=== PATIENT | male | born 1970 | race African-American/Black ===

== ENCOUNTER 2018-04-08 11:04 | Emergency (ER) | payer MEDICAID ==
--- NOTE | 2018-04-08 11:51 | EDM.PDOC ---
ED HPI GENERAL MEDICAL PROBLEM - General Chief Complaint: Respiratory Problem Stated Complaint: TROUBLE BREATHING Time Seen by Provider: 04/08/18 11:24 Source of Information: Reports: Patient, Family History Limitations: Reports: No Limitations - History of Present Illness INITIAL COMMENTS - FREE TEXT/NARRATIVE: Presents reporting cough chills and chest pain with cough. The patient states that he had the same set of symptoms once previous, he had pneumonia and had to be hospitalized for 2 days. He wanted to be proactive and be seen before it got to that point if that is indeed what is troubling him. He has a history of mechanical MVR mechanical AVR, A. fib/flutter anticoagulated, ejection fraction 30-35% in 11/2017. He otherwise feels well however and works full-time as a fabrication mig welder. Right Upper Chest Pain Score (Numeric/FACES): 6 - Related Data Allergies Allergy/AdvReac Type Severity Reaction Status Date / Time Sulfa (Sulfonamide Allergy Rash Verified 04/08/18 11:25 Antibiotics) Home Meds: Home Meds Warfarin [Coumadin] 4 mg PO ASDIRECTED 01/28/18 [History] Doxycycline [Vibramycin] 100 mg PO DAILY #10 tab 04/08/18 [Rx] Enalapril Maleate [Vasotec] 40 mg PO DAILY 04/08/18 [History] Enalapril [Vasotec] 10 mg PO DAILY 04/08/18 [History] levETIRAcetam [Keppra] 500 mg PO DAILY 04/08/18 [History] Past Medical History HEENT History: Reports: None Cardiovascular History: Reports: Afib Respiratory History: Reports: Other (See Below) Other Respiratory History: pneumonia Other Gastrointestinal History: Crohns disease Genitourinary History: Reports: None Musculoskeletal History: Reports: None Neurological History: Reports: Seizure Psychiatric History: Reports: None Endocrine/Metabolic History: Reports: None Hematologic History: Reports: None Immunologic History: Reports: None Oncologic (Cancer) History: Reports: None Dermatologic History: Reports: None - Infectious Disease History Infectious Disease History: Reports: Chicken Pox - Past Surgical History Head Surgeries/Procedures: Reports: None Cardiovascular Surgical History: Reports: Valve Replacement Social & Family History - Family History Family Medical History: Noncontributory - Tobacco Use Smoking Status *Q: Never Smoker - Caffeine Use Caffeine Use: Reports: Coffee - Recreational Drug Use Recreational Drug Use: No ED ROS GENERAL - Review of Systems Review Of Systems: ROS reveals no pertinent complaints other than HPI. ED EXAM, GENERAL - Physical Exam Exam: See Below Exam Limited By: No Limitations General Appearance: Alert, No Apparent Distress Ears: Normal External Exam, Normal TMs Nose: Normal Inspection Throat/Mouth: Normal Inspection, Normal Oropharynx Head: Atraumatic, Normocephalic Neck: Normal Inspection Respiratory/Chest: No Respiratory Distress, Lungs Clear, No Accessory Muscle Use Cardiovascular: Normal Peripheral Pulses, No Edema, Irregularly Irregular Neurological: Alert, Oriented, Normal Cognition Psychiatric: Normal Affect, Normal Mood Skin Exam: Warm, Dry, Intact, Normal Color, No Rash Lymphatic: No Adenopathy Course - Vital Signs Last Recorded V/S: Last Vital Signs Temp 36.8 C 04/08/18 11:22 Pulse 62 04/08/18 12:17 Resp 14 04/08/18 12:17 BP 136/85 04/08/18 12:17 Pulse Ox 98 04/08/18 12:17 - Orders/Labs/Meds Labs: Laboratory Tests 04/08/18 04/08/18 04/08/18 Range/Units 11:57 11:57 11:57 WBC 9.24 (4.0-11.0) K/uL RBC 4.64 (4.50-5.90) M/uL Hgb 13.0 (13.0-17.0) g/dL Hct 38.6 (38.0-50.0) % MCV 83.2 (80.0-98.0) fL MCH 28.0 (27.0-32.0) pg MCHC 33.7 (31.0-37.0) g/dL RDW Std Deviation 43.8 (28.0-62.0) fl RDW Coeff of Sherwin 15 (11.0-15.0) % Plt Count 169 (150-400) K/uL MPV 10.90 (7.40-12.00) fL Add Manual Diff YES Neutrophils % (Manual) 66 (48.0-80.0) % Band Neutrophils % 3 % Lymphocytes % (Manual) 25 (16.0-40.0) % Monocytes % (Manual) 5 (0.0-15.0) % Eosinophils % (Manual) 1 (0.0-7.0) % Nucleated RBC % 0.0 /100WBC Absolute Seg Neuts 6.1 H (1.4-5.7) Band Neutrophils # 0.3 Lymphocytes # (Manual) 2.3 (0.6-2.4) Monocytes # (Manual) 0.5 (0.0-0.8) Eosinophils # (Manual) 0.1 (0.0-0.7) Nucleated RBCs # 0 K/uL Sodium 139 (136-148) mmol/L Potassium 4.0 (3.5-5.1) mmol/L Chloride 105 (98-107) mmol/L Carbon Dioxide 27.3 (21.0-32.0) mmol/L BUN 11 (7.0-18.0) mg/dL Creatinine 0.8 (0.8-1.3) mg/dL Est Cr Clr Drug Dosing 100.80 mL/min Estimated GFR (MDRD) > 60.0 ml/min Glucose 71 L (74-106) mg/dL Calcium 9.0 (8.5-10.1) mg/dL Troponin I < 0.050 (0.000-0.056) ng/mL Meds: Medications Discontinued Medications Generic Name Dose Route Start Last Admin Trade Name Freq PRN Reason Stop Dose Admin Ceftriaxone Sodium 1 gm 04/08/18 13:05 Rocephin IM 04/08/18 13:06 ONETIME ONE Lidocaine HCl Confirm 04/08/18 13:12 Xylocaine-Mpf 1% Administered 04/08/18 13:13 Dose 5 mls @ as directed .ROUTE .STK-MED ONE Lidocaine HCl 2.1 ml 04/08/18 13:09 Xylocaine 1% INJECT 04/08/18 13:10 ONETIME ONE Departure - Departure Time of Disposition: 13:23 Disposition: Home, Self-Care 01 Condition: Good Clinical Impression: Pneumonia Qualifiers: Pneumonia type: due to unspecified organism Laterality: left Lung location: lower lobe of lung Qualified Code(s): J18.1 - Lobar pneumonia, unspecified organism - Discharge Information Referrals: PCP,Not In Area [Primary Care Provider] - [facility] [Outside] [facility] [Outside] Forms: ED Department Discharge Additional Instructions: 1. Take your antibiotic once daily for the next 10 days 2. This medication can affect you Coumadin please home check your INR a couple of times during the next 10 days to be sure it stays between 2 and 3. 3. Follow-up in primary care. Return if symptoms worsen, feverish, do not improve as expected
--- NOTE | 2018-04-08 12:24 | CR ---
EXAMINATION: Two-view chest (PA and Lateral views). HISTORY: Cough. FINDINGS: The trachea is midline. The heart is borderline in size. The cardiomediastinal silhouette is within normal limits. Mild left basilar atelectasis or infiltrate. No pleural effusion or pneumothorax. Osseous structures appear unremarkable. Median sternotomy wires are noted. IMPRESSION: Mild left basilar atelectasis and/or infiltrate.
[2018-04-08 12:26] LABS: CHLORIDE,CL 105 mmol/L (98-107); SODIUM,NA 139 mmol/L (136-148)
[2018-04-08] MEDS ORDERED: cefTRIAXone 1 GM Vial IM ONE (13:05)
[2018-04-08] MEDS ORDERED: Lidocaine 1% 20 ML MDV INJECT ONE (13:09)
== END 2018-04-08 13:46 | disposition home or self-care (01) ==
LOC: MW.ED 11:04
DX: J18.1 Lobar pneumonia, unspecified organism (principal); Z88.2 Allergy status to sulfonamides; Z79.01 Long term (current) use of anticoagulants; Z79.899 Other long term (current) drug therapy
CPT/HCPCS: 36415; 71046; 80048; 84484; 85025; 87804; 93005; 96372; 99284; J0696

== ENCOUNTER 2018-08-22 17:55 | Emergency (ER) | payer MEDICAID ==
[2018-08-22] MEDS ORDERED: Sodium Chloride 0.9% 1,000 ML IV ONE (18:06)
--- NOTE | 2018-08-22 18:13 | EDM.PDOC ---
ED HPI GENERAL MEDICAL PROBLEM - General Chief Complaint: Chest Pain Stated Complaint: CHEST PAINS/LIGHT HEADEDNESS Time Seen by Provider: 08/22/18 17:57 Source of Information: Reports: Patient History Limitations: Reports: No Limitations - History of Present Illness INITIAL COMMENTS - FREE TEXT/NARRATIVE: HISTORY AND PHYSICAL: History of present illness: Patient is a 47-year-old male presents to the ED today with concern of neck pain /spasm over the past week along with vague chest pressure. Patient has an extensive cardiac history of both an aortic and mitral valve repair due to rheumatic heart disease and he was a child. Patient is on warfarin and checks his INR regularly. He states that his last INR was just a little bit less than 3 on Saturday. Patient states he also has Crohn's and atrial fibrillation. Patient states he had his valves repaired in 1991 and follows with her echo vascular technologist Dr. Mcguire at [facility] and has not had issues with his heart since. Patient states the neck pain feels like a spasm and is worse on the left than the right and has been causing him to have a headache. Patient has not taken anything for his symptoms. Patient denies fever, chills, or shortness of breath or cough. Denies change in vision, syncope, or near syncope. Denies nausea, vomiting, abdominal pain, diarrhea, constipation, or dysuria. Has not noted any blood in urine or stool. Patient has been eating and drinking appropriately. Review of systems: As per history of present illness and below otherwise all systems reviewed and negative. Past medical history: As per history of present illness and as reviewed below otherwise noncontributory. Surgical history: As per history of present illness and as reviewed below otherwise noncontributory. Social history: See social history for further information Family history: As per history of present illness and as reviewed below otherwise noncontributory. Physical exam: General: Patient is alert, oriented, and in no acute distress. Patient sitting comfortably on exam table. HEENT: Atraumatic, normocephalic, pupils equal and reactive bilaterally, negative for conjunctival pallor or scleral icterus, mucous membranes moist, TMs normal bilaterally, throat clear, neck supple, nontender, trachea midline. No drooling or trismus noted. No meningeal signs. No hot potato voice noted. Lungs: Clear to auscultation, breath sounds equal bilaterally, chest nontender. Heart: S1S2, irregularly irregular rate and rhythm without overt murmur and clicking of mechanical valves noted. Scarring consistent with surgical history. Abdomen: Soft, nondistended, nontender. Negative for masses or hepatosplenomegaly. Negative for costovertebral tenderness. Pelvis: Stable nontender. Genitourinary: Deferred. Rectal: Deferred. Skin: Intact, warm, dry. No lesions or rashes noted. Extremities/musculoskeletal: Atraumatic, negative for cords or calf pain. Neurovascular unremarkable. Patient has full range of motion of the complete spine. Negative pain to palpation of the complete spinous process. No obvious step-offs, deformities, or crepitus on palpation of the complete spine. Patient does have pain at the insertion site of the trapezius into the base of the skull. Neuro: Awake, alert, oriented. Cranial nerves II through XII unremarkable. Cerebellum unremarkable. Motor and sensory unremarkable throughout. Exam nonfocal. Notes: Eunice San verbally involved in patient care. EKG from prior also shows a LBBB and atrial fibrillation; no new EKG changes. Offered admission for observation but patient declines at this time stating he does not live far from here and will return if symptoms change or worsen. Discussed the supratherapeutic INR and patient states he has a chart at home to adjust his dose accordingly. Voices understanding and is agreeable to plan of care. Denies any further questions or concerns at this time. Diagnostics: CBC, CMP, UA, troponin, EKG, chest x-ray, PT/INR, cervical spine XR Therapeutics: NS Impression: Neck pain, unspecified Chest pain, unspecified Supratherapeutic INR H/O aortic and mitral valve replacement Plan: 1. Alternate ibuprofen and Tylenol as directed for pain and discomfort. 2. Follow-up with your primary care provider and your echo vascular technologist as discussed. Adjust your warfarin as discussed. 3. Return to the ED as needed and as discussed. Definitive disposition and diagnosis as appropriate pending reevaluation and review of above. Chest Pain Score (Numeric/FACES): 6 - Related Data Allergies Allergy/AdvReac Type Severity Reaction Status Date / Time Sulfa (Sulfonamide Allergy Rash Verified 08/22/18 17:58 Antibiotics) Home Meds: Home Meds Warfarin [Coumadin] 4 mg PO ASDIRECTED 01/28/18 [History] Doxycycline [Vibramycin] 100 mg PO DAILY #10 tab 04/08/18 [Rx] Enalapril Maleate [Vasotec] 40 mg PO DAILY 04/08/18 [History] Enalapril [Vasotec] 10 mg PO DAILY 04/08/18 [History] levETIRAcetam [Keppra] 500 mg PO DAILY 04/08/18 [History] Past Medical History HEENT History: Reports: None Cardiovascular History: Reports: Afib Respiratory History: Reports: Other (See Below) Other Respiratory History: pneumonia Other Gastrointestinal History: Crohns disease Genitourinary History: Reports: None Musculoskeletal History: Reports: None Neurological History: Reports: Seizure Psychiatric History: Reports: None Endocrine/Metabolic History: Reports: None Hematologic History: Reports: None Immunologic History: Reports: None Oncologic (Cancer) History: Reports: None Dermatologic History: Reports: None - Infectious Disease History Infectious Disease History: Reports: Chicken Pox, Rheumatic Fever - Past Surgical History Head Surgeries/Procedures: Reports: None Cardiovascular Surgical History: Reports: Valve Replacement Social & Family History - Family History Family Medical History: Noncontributory - Tobacco Use Smoking Status *Q: Never Smoker Second Hand Smoke Exposure: No - Caffeine Use Caffeine Use: Reports: Coffee - Recreational Drug Use Recreational Drug Use: No ED ROS GENERAL - Review of Systems Review Of Systems: ROS reveals no pertinent complaints other than HPI. ED EXAM, GENERAL - Physical Exam Exam: See Below (See dictation) Course - Vital Signs Last Recorded V/S: Last Vital Signs Temp 35.8 C 08/22/18 17:59 Pulse 74 08/22/18 20:29 Resp 18 08/22/18 20:29 BP 132/60 08/22/18 20:29 Pulse Ox 98 08/22/18 20:29 - Orders/Labs/Meds Orders: Active Orders 24 hr Category Date Time Status EKG Documentation Completion [RC] STAT Care 08/22/18 17:58 Active Labs: Laboratory Tests 08/22/18 08/22/18 08/22/18 Range/Units 18:06 18:06 18:06 WBC 11.90 H (4.0-11.0) K/uL RBC 4.76 (4.50-5.90) M/uL Hgb 13.7 (13.0-17.0) g/dL Hct 39.7 (38.0-50.0) % MCV 83.4 (80.0-98.0) fL MCH 28.8 (27.0-32.0) pg MCHC 34.5 (31.0-37.0) g/dL RDW Std Deviation 46.4 (28.0-62.0) fl RDW Coeff of Sherwin 15 (11.0-15.0) % Plt Count 164 (150-400) K/uL MPV 11.00 (7.40-12.00) fL Neut % (Auto) 73.3 (48.0-80.0) % Lymph % (Auto) 14.5 L (16.0-40.0) % [place] % (Auto) 11.8 (0.0-15.0) % Eos % (Auto) 0.2 (0.0-7.0) % Baso % (Auto) 0.2 (0.0-1.5) % Neut # (Auto) 8.7 H (1.4-5.7) K/uL Lymph # (Auto) 1.7 (0.6-2.4) K/uL [place] # (Auto) 1.4 H (0.0-0.8) K/uL Eos # (Auto) 0.0 (0.0-0.7) K/uL Baso # (Auto) 0.0 (0.0-0.1) K/uL Nucleated RBC % 0.0 /100WBC Nucleated RBCs # 0 K/uL INR 4.11 Sodium 132 L (136-148) mmol/L Potassium 4.0 (3.5-5.1) mmol/L Chloride 102 (98-107) mmol/L Carbon Dioxide 21.8 (21.0-32.0) mmol/L BUN 18 (7.0-18.0) mg/dL Creatinine 0.8 (0.8-1.3) mg/dL Est Cr Clr Drug Dosing 100.80 mL/min Estimated GFR (MDRD) > 60.0 ml/min Glucose 104 (74-106) mg/dL Calcium 8.6 (8.5-10.1) mg/dL Total Bilirubin 1.5 H (0.2-1.0) mg/dL AST 35 (15-37) IU/L ALT 40 (14-63) IU/L Alkaline Phosphatase 82 (46-116) U/L Troponin I < 0.050 (0.000-0.056) ng/mL Total Protein 7.1 (6.4-8.2) g/dL Albumin 3.6 (3.4-5.0) g/dL Globulin 3.5 (2.6-4.0) g/dL Albumin/Globulin Ratio 1.0 (0.9-1.6) Urine Color Urine Appearance Urine pH (5.0-8.0) Ur Specific [place] (1.001-1.035) Urine Protein (NEGATIVE) mg/dL Urine Glucose (UA) (NEGATIVE) mg/dL Urine Ketones (NEGATIVE) mg/dL Urine Occult Blood (NEGATIVE) Urine Nitrite (NEGATIVE) Urine Bilirubin (NEGATIVE) Urine Urobilinogen (<2.0) EU/dL Ur Leukocyte Esterase (NEGATIVE) Urine RBC (0-2/HPF) Urine WBC (0-5/HPF) Ur Epithelial Cells (NONE-FEW) Urine Bacteria (NEGATIVE) 08/22/18 Range/Units 19:52 WBC (4.0-11.0) K/uL RBC (4.50-5.90) M/uL Hgb (13.0-17.0) g/dL Hct (38.0-50.0) % MCV (80.0-98.0) fL MCH (27.0-32.0) pg MCHC (31.0-37.0) g/dL RDW Std Deviation (28.0-62.0) fl RDW Coeff of Sherwin (11.0-15.0) % Plt Count (150-400) K/uL MPV (7.40-12.00) fL Neut % (Auto) (48.0-80.0) % Lymph % (Auto) (16.0-40.0) % [place] % (Auto) (0.0-15.0) % Eos % (Auto) (0.0-7.0) % Baso % (Auto) (0.0-1.5) % Neut # (Auto) (1.4-5.7) K/uL Lymph # (Auto) (0.6-2.4) K/uL [place] # (Auto) (0.0-0.8) K/uL Eos # (Auto) (0.0-0.7) K/uL Baso # (Auto) (0.0-0.1) K/uL Nucleated RBC % /100WBC Nucleated RBCs # K/uL INR Sodium (136-148) mmol/L Potassium (3.5-5.1) mmol/L Chloride (98-107) mmol/L Carbon Dioxide (21.0-32.0) mmol/L BUN (7.0-18.0) mg/dL Creatinine (0.8-1.3) mg/dL Est Cr Clr Drug Dosing mL/min Estimated GFR (MDRD) ml/min Glucose (74-106) mg/dL Calcium (8.5-10.1) mg/dL Total Bilirubin (0.2-1.0) mg/dL AST (15-37) IU/L ALT (14-63) IU/L Alkaline Phosphatase (46-116) U/L Troponin I (0.000-0.056) ng/mL Total Protein (6.4-8.2) g/dL Albumin (3.4-5.0) g/dL Globulin (2.6-4.0) g/dL Albumin/Globulin Ratio (0.9-1.6) Urine Color YELLOW Urine Appearance CLEAR Urine pH 6.0 (5.0-8.0) Ur Specific [place] 1.010 (1.001-1.035) Urine Protein NEGATIVE (NEGATIVE) mg/dL Urine Glucose (UA) NEGATIVE (NEGATIVE) mg/dL Urine Ketones NEGATIVE (NEGATIVE) mg/dL Urine Occult Blood TRACE-LYSED H (NEGATIVE) Urine Nitrite NEGATIVE (NEGATIVE) Urine Bilirubin NEGATIVE (NEGATIVE) Urine Urobilinogen 0.2 (<2.0) EU/dL Ur Leukocyte Esterase NEGATIVE (NEGATIVE) Urine RBC 0-2 (0-2/HPF) Urine WBC 0-1 (0-5/HPF) Ur Epithelial Cells RARE (NONE-FEW) Urine Bacteria RARE (NEGATIVE) Meds: Medications Discontinued Medications Generic Name Dose Route Start Last Admin Trade Name Freq PRN Reason Stop Dose Admin Sodium Chloride 1,000 mls @ 999 mls/hr 08/22/18 18:06 08/22/18 18:26 Normal Saline IV 08/22/18 19:06 999 mls/hr BOLUS ONE Administration Departure - Departure Time of Disposition: 10:11 Disposition: Home, Self-Care 01 Clinical Impression: Neck pain, Supratherapeutic INR, History of mitral valve replacement, History of aortic valve replacement Chest pain Qualifiers: Chest pain type: unspecified Qualified Code(s): R07.9 - Chest pain, unspecified - Discharge Information Instructions: What You Need to Know About Warfarin, Nonspecific Chest Pain, [id number] Referrals: PCP,None [Primary Care Provider] - Forms: ED Department Discharge Additional Instructions: The following information is given to patients seen in the emergency department who are being discharged to home. This information is to outline your options for follow-up care. We provide all patients seen in our emergency department with a follow-up referral. The need for follow-up, as well as the timing and circumstances, are variable depending upon the specifics of your emergency department visit. If you don't have a primary care physician on staff, we will provide you with a referral. We always advise you to contact your personal physician following an emergency department visit to inform them of the circumstance of the visit and for follow-up with them and/or the need for any referrals to a consulting specialist. The emergency department will also refer you to a specialist when appropriate. This referral assures that you have the opportunity for follow-up care with a specialist. All of these measure are taken in an effort to provide you with optimal care, which includes your follow-up. Under all circumstances we always encourage you to contact your private physician who remains a resource for coordinating your care. When calling for follow-up care, please make the office aware that this follow-up is from your recent emergency room visit. If for any reason you are refused follow-up, please contact the [facility] Emergency Department at and asked to speak to the emergency department charge nurse. [facility] [address] [place] [id number] [facility] [address] [place] [id number] 1. Alternate ibuprofen and Tylenol as directed for pain and discomfort. 2. Follow-up with your primary care provider and your echo vascular technologist as discussed. Adjust your warfarin as discussed. 3. Return to the ED as needed and as discussed. - My Orders Last 24 Hours: My Active Orders 08/22/18 17:58 EKG Documentation Completion [RC] STAT - Assessment/Plan Last 24 Hours: My Active Orders 08/22/18 17:58 EKG Documentation Completion [RC] STAT
[2018-08-22 18:42] LABS: CHLORIDE,CL 102 mmol/L (98-107); SODIUM,NA 132 mmol/L (136-148)
--- NOTE | 2018-08-22 19:30 | CR ---
INDICATION: Chest pain COMPARISON: 04/08/2018 FINDINGS: An erect single view of the chest was obtained at 1839 hours. The lungs remain clear. No focal or diffuse infiltrates are present. The heart remains mildly enlarged. Again seen are sternal wires from median sternotomy. The mediastinum is otherwise normal in appearance. The osseous structures are normal in appearance for the patient`s age. IMPRESSION: Stable mild cardiomegaly. No active disease seen in the chest. Dictated by Jose Bishop MD @ Aug 22 2018 7:28PM Signed by Dr. Jose Bishop @ Aug 22 2018 7:29PM
--- NOTE | 2018-08-22 19:35 | CR ---
INDICATION : Neck pain. TECHNIQUE : Cervical spine. Total of 3 views. IMPRESSION : Normal appearance of vertebral bodies. Minimal disc narrowing at C6-7. Prevertebral soft tissues appear normal. Straightening of the cervical lordosis but no listhesis. No significant osseous fracture or suspicious lesion. Dictated by Femi Feng MD @ Aug 22 2018 7:31PM Signed by Dr. Femi Feng @ Aug 22 2018 7:33PM
== END 2018-08-22 20:29 | disposition home or self-care (01) ==
LOC: MW.ED 17:55
DX: R07.89 Other chest pain (principal); M54.2 Cervicalgia; R79.1 Abnormal coagulation profile; I48.91 Unspecified atrial fibrillation; K50.90 Crohn's disease, unspecified, without complications; Z95.4 Presence of other heart-valve replacement; Z79.899 Other long term (current) drug therapy; Z88.2 Allergy status to sulfonamides
CPT/HCPCS: 36415; 71045; 72040; 80053; 81001; 84484; 85025; 85610; 93005; 96360; 99284; J7040

== ENCOUNTER 2018-09-27 13:22 | Emergency (ER) | payer MEDICAID ==
[2018-09-27] MEDS ORDERED: Sodium Chloride 0.9% 1,000 ML IV ONE (13:29)
[2018-09-27] MEDS ORDERED: LORazepam 2 MG/ML SDV IVPUSH ONE (13:30)
[2018-09-27] MEDS ORDERED: cefTRIAXone 1 GM in Premix Bag 1 BAG IV ONE (13:30)
--- NOTE | 2018-09-27 13:32 | EDM.PDOC ---
ED HPI GENERAL MEDICAL PROBLEM - General Chief Complaint: Neurological Problem Stated Complaint: SEIZURES Time Seen by Provider: 09/27/18 13:31 Source of Information: Reports: Patient - History of Present Illness INITIAL COMMENTS - FREE TEXT/NARRATIVE: HISTORY AND PHYSICAL: History of present illness: [Pt presents with history of seizure disorder via EMS Is been some time since he has had any seizure symptoms however he did have a seizure just prior to arrival witnessed by his , he states that he is on Keppra however he decreased his dose to once daily instead of twice daily approximately one week prior No fever nausea vomiting chills sweats] Review of systems: As per history of present illness and below otherwise all systems reviewed and negative. Past medical history: As per history of present illness and as reviewed below otherwise noncontributory. Surgical history: As per history of present illness and as reviewed below otherwise noncontributory. Social history: No reported history of drug or alcohol abuse. Family history: As per history of present illness and as reviewed below otherwise noncontributory. Physical exam: HEENT: Atraumatic, normocephalic, pupils reactive, negative for conjunctival pallor or scleral icterus, mucous membranes moist, throat clear, neck supple, nontender, trachea midline. Lungs: Clear to auscultation, breath sounds equal bilaterally, chest nontender. Heart: S1S2, regular, negative for clicks, rubs, or JVD. Abdomen: Soft, nondistended, nontender. Negative for masses or hepatosplenomegaly. Negative for costovertebral tenderness. Pelvis: Stable nontender. Genitourinary: Deferred. Rectal: Deferred. Extremities: Atraumatic, negative for cords or calf pain. Neurovascular unremarkable. Neuro: Awake, alert, oriented. Cranial nerves II through XII unremarkable. Cerebellum unremarkable. Motor and sensory unremarkable throughout. Exam nonfocal. Diagnostics: [CBC CMP UA troponin INR Level EKG Chest [address] no contrast ] Therapeutics: Normal saline Ativan 1 mg IV ]Vasotec 1.25 IV Clonidine 0.1 by mouth Augmentin Impression: [ seizure disorder ] Hypertension Headache Tooth bite distal tongue Chronic history baseline Definitive disposition and diagnosis as appropriate pending reevaluation and review of above. tongue Pain Score (Numeric/FACES): 7 - Related Data Allergies Allergy/AdvReac Type Severity Reaction Status Date / Time Sulfa (Sulfonamide Allergy Rash Verified 08/22/18 17:58 Antibiotics) Home Meds: Home Meds Warfarin [Coumadin] 4 mg PO ASDIRECTED 01/28/18 [History] Doxycycline [Vibramycin] 100 mg PO DAILY #10 tab 04/08/18 [Rx] Enalapril Maleate [Vasotec] 40 mg PO DAILY 04/08/18 [History] Enalapril [Vasotec] 10 mg PO DAILY 04/08/18 [History] levETIRAcetam [Keppra] 500 mg PO BID 04/08/18 [History] Carvedilol 6.25 mg PO BID 09/27/18 [History] Lisinopril 10 mg PO DAILY 09/27/18 [History] atorvaSTATin Calcium [Atorvastatin Calcium] 40 mg PO DAILY 09/27/18 [History] Past Medical History HEENT History: Reports: None Cardiovascular History: Reports: Afib Respiratory History: Reports: Other (See Below) Other Respiratory History: pneumonia Other Gastrointestinal History: Crohns disease Genitourinary History: Reports: None Musculoskeletal History: Reports: None Neurological History: Reports: Seizure Psychiatric History: Reports: None Endocrine/Metabolic History: Reports: None Hematologic History: Reports: None Immunologic History: Reports: None Oncologic (Cancer) History: Reports: None Dermatologic History: Reports: None - Infectious Disease History Infectious Disease History: Reports: Chicken Pox, Rheumatic Fever - Past Surgical History Head Surgeries/Procedures: Reports: None Cardiovascular Surgical History: Reports: Valve Replacement Social & Family History - Family History Family Medical History: Noncontributory - Caffeine Use Caffeine Use: Reports: Coffee ED ROS GENERAL - Review of Systems Review Of Systems: See Below ED EXAM, GENERAL - Physical Exam Exam: See Below Course - Vital Signs Last Recorded V/S: Last Vital Signs Temp 98.1 F 09/27/18 13:30 Pulse 82 09/27/18 17:25 Resp 20 09/27/18 17:25 BP 163/100 H 09/27/18 17:25 Pulse Ox 97 09/27/18 17:25 - Orders/Labs/Meds Orders: Active Orders 24 hr Category Date Time Status EKG Documentation Completion [RC] STAT Care 09/27/18 13:29 Active LEVETIRACETAM, S [REF] Stat Lab 09/27/18 13:25 Received Sodium Chloride 0.9% [Normal Saline] 1,000 ml Med 09/27/18 17:00 Active IV STAT Medication Orders Sodium Chloride (Normal Saline) 1,000 mls @ 125 mls/hr IV STAT TIFFANY Last Admin: 09/27/18 17:16 Dose: 125 mls/hr Labs: Laboratory Tests 09/27/18 09/27/18 09/27/18 Range/Units 13:25 13:25 13:25 WBC 10.04 (4.0-11.0) K/uL RBC 4.56 (4.50-5.90) M/uL Hgb 13.0 (13.0-17.0) g/dL Hct 39.0 (38.0-50.0) % MCV 85.5 (80.0-98.0) fL MCH 28.5 (27.0-32.0) pg MCHC 33.3 (31.0-37.0) g/dL RDW Std Deviation 48.8 (28.0-62.0) fl RDW Coeff of [place]win 16 H (11.0-15.0) % Plt Count 175 (150-400) K/uL MPV 11.10 (7.40-12.00) fL Neut % (Auto) 80.7 H (48.0-80.0) % Lymph % (Auto) 9.5 L (16.0-40.0) % [place] % (Auto) 9.2 (0.0-15.0) % Eos % (Auto) 0.4 (0.0-7.0) % Baso % (Auto) 0.2 (0.0-1.5) % Neut # (Auto) 8.1 H (1.4-5.7) K/uL Lymph # (Auto) 1.0 (0.6-2.4) K/uL [place] # (Auto) 0.9 H (0.0-0.8) K/uL Eos # (Auto) 0.0 (0.0-0.7) K/uL Baso # (Auto) 0.0 (0.0-0.1) K/uL Nucleated RBC % 0.0 /100WBC Nucleated RBCs # 0 K/uL INR 2.65 Sodium 140 (136-148) mmol/L Potassium 4.1 (3.5-5.1) mmol/L Chloride 105 (98-107) mmol/L Carbon Dioxide 24.8 (21.0-32.0) mmol/L BUN 20 H (7.0-18.0) mg/dL Creatinine 1.0 (0.8-1.3) mg/dL Est Cr Clr Drug Dosing 80.64 mL/min Estimated GFR (MDRD) > 60.0 ml/min Glucose 124 H (74-106) mg/dL Calcium 9.0 (8.5-10.1) mg/dL Total Bilirubin 1.6 H (0.2-1.0) mg/dL AST 41 H (15-37) IU/L ALT 60 (14-63) IU/L Alkaline Phosphatase 77 (46-116) U/L Troponin I < 0.050 (0.000-0.056) ng/mL Total Protein 7.0 (6.4-8.2) g/dL Albumin 3.6 (3.4-5.0) g/dL Globulin 3.4 (2.6-4.0) g/dL Albumin/Globulin Ratio 1.1 (0.9-1.6) Urine Color Urine Appearance Urine pH (5.0-8.0) Ur Specific Marvin (1.001-1.035) Urine Protein (NEGATIVE) mg/dL Urine Glucose (UA) (NEGATIVE) mg/dL Urine Ketones (NEGATIVE) mg/dL Urine Occult Blood (NEGATIVE) Urine Nitrite (NEGATIVE) Urine Bilirubin (NEGATIVE) Urine Urobilinogen (<2.0) EU/dL Ur Leukocyte Esterase (NEGATIVE) Urine RBC (0-2/HPF) Urine WBC (0-5/HPF) Ur Epithelial Cells (NONE-FEW) Urine Bacteria (NEGATIVE) Hyaline Casts (0-2/LPF) Urine Mucus (NONE-MOD) Urine Opiates Screen (NEGATIVE) Ur Oxycodone Screen (NEGATIVE) Urine Methadone Screen (NEGATIVE) Ur Barbiturates Screen (NEGATIVE) Ur Phencyclidine Scrn (NEGATIVE) Ur Amphetamine Screen (NEGATIVE) U Methamphetamines Scrn (NEGATIVE) U Benzodiazepines Scrn (NEGATIVE) U Cocaine Metab Screen (NEGATIVE) U Marijuana (THC) Screen (NEGATIVE) Ethyl Alcohol < 3.0 mg/dL 09/27/18 09/27/18 Range/Units 14:20 14:20 WBC (4.0-11.0) K/uL RBC (4.50-5.90) M/uL Hgb (13.0-17.0) g/dL Hct (38.0-50.0) % MCV (80.0-98.0) fL MCH (27.0-32.0) pg MCHC (31.0-37.0) g/dL RDW Std Deviation (28.0-62.0) fl RDW Coeff of [place]win (11.0-15.0) % Plt Count (150-400) K/uL MPV (7.40-12.00) fL Neut % (Auto) (48.0-80.0) % Lymph % (Auto) (16.0-40.0) % [place] % (Auto) (0.0-15.0) % Eos % (Auto) (0.0-7.0) % Baso % (Auto) (0.0-1.5) % Neut # (Auto) (1.4-5.7) K/uL Lymph # (Auto) (0.6-2.4) K/uL [place] # (Auto) (0.0-0.8) K/uL Eos # (Auto) (0.0-0.7) K/uL Baso # (Auto) (0.0-0.1) K/uL Nucleated RBC % /100WBC Nucleated RBCs # K/uL INR Sodium (136-148) mmol/L Potassium (3.5-5.1) mmol/L Chloride (98-107) mmol/L Carbon Dioxide (21.0-32.0) mmol/L BUN (7.0-18.0) mg/dL Creatinine (0.8-1.3) mg/dL Est Cr Clr Drug Dosing mL/min Estimated GFR (MDRD) ml/min Glucose (74-106) mg/dL Calcium (8.5-10.1) mg/dL Total Bilirubin (0.2-1.0) mg/dL AST (15-37) IU/L ALT (14-63) IU/L Alkaline Phosphatase (46-116) U/L Troponin I (0.000-0.056) ng/mL Total Protein (6.4-8.2) g/dL Albumin (3.4-5.0) g/dL Globulin (2.6-4.0) g/dL Albumin/Globulin Ratio (0.9-1.6) Urine Color YELLOW Urine Appearance CLEAR Urine pH 6.0 (5.0-8.0) Ur Specific [place] >= 1.030 (1.001-1.035) Urine Protein TRACE H (NEGATIVE) mg/dL Urine Glucose (UA) NEGATIVE (NEGATIVE) mg/dL Urine Ketones NEGATIVE (NEGATIVE) mg/dL Urine Occult Blood SMALL H (NEGATIVE) Urine Nitrite NEGATIVE (NEGATIVE) Urine Bilirubin NEGATIVE (NEGATIVE) Urine Urobilinogen 0.2 (<2.0) EU/dL Ur Leukocyte Esterase NEGATIVE (NEGATIVE) Urine RBC 0-2 (0-2/HPF) Urine WBC 0-1 (0-5/HPF) Ur Epithelial Cells RARE (NONE-FEW) Urine Bacteria RARE (NEGATIVE) Hyaline Casts 0-1 (0-2/LPF) Urine Mucus LIGHT (NONE-MOD) Urine Opiates Screen NEGATIVE (NEGATIVE) Ur Oxycodone Screen NEGATIVE (NEGATIVE) Urine Methadone Screen NEGATIVE (NEGATIVE) Ur Barbiturates Screen NEGATIVE (NEGATIVE) Ur Phencyclidine Scrn NEGATIVE (NEGATIVE) Ur Amphetamine Screen NEGATIVE (NEGATIVE) U Methamphetamines Scrn NEGATIVE (NEGATIVE) U Benzodiazepines Scrn NEGATIVE (NEGATIVE) U Cocaine Metab Screen NEGATIVE (NEGATIVE) U Marijuana (THC) Screen NEGATIVE (NEGATIVE) Ethyl Alcohol mg/dL Meds: Medications Generic Name Dose Route Start Last Admin Trade Name Freq PRN Reason Stop Dose Admin Sodium Chloride 1,000 mls @ 125 mls/hr 09/27/18 17:00 09/27/18 17:16 Normal Saline IV 125 mls/hr STAT TIFFANY Administration Discontinued Medications Generic Name Dose Route Start Last Admin Trade Name Freq PRN Reason Stop Dose Admin Clonidine HCl 0.1 mg 09/27/18 16:54 09/27/18 17:12 Catapres PO 09/27/18 16:55 0.1 mg ONETIME ONE Administration Diphenhydramine HCl 50 mg 09/27/18 16:54 09/27/18 17:16 Benadryl IVPUSH 09/27/18 16:55 50 mg ONETIME ONE Administration Enalaprilat 1.25 mg 09/27/18 15:34 09/27/18 15:44 Vasotec Iv IVPUSH 09/27/18 15:35 1.25 mg ONETIME ONE Administration Sodium Chloride 1,000 mls @ 999 mls/hr 09/27/18 13:29 09/27/18 13:43 Normal Saline IV 09/27/18 14:29 999 mls/hr STAT ONE Administration Ceftriaxone Sodium/Dextrose 1 50 mls @ 100 mls/hr 09/27/18 13:30 09/27/18 13: 48 gm/ Premix IV 09/27/18 13:59 100 mls/hr ONETIME ONE Administration Levetiracetam 500 mg 09/27/18 13:54 09/27/18 14:21 Keppra PO 09/27/18 13:55 500 mg NOW ONE Administration Levetiracetam 500 mg 09/27/18 14:30 09/27/18 15:35 Keppra PO 09/27/18 14:31 Not Given NOW ONE Lorazepam 1 mg 09/27/18 13:30 09/27/18 13:45 Ativan IVPUSH 09/27/18 13:31 1 mg ONETIME ONE Administration Departure - Departure Time of Disposition: 17:27 Disposition: Home, Self-Care 01 Condition: Good Clinical Impression: Bite, Seizure disorder, Noncompliance with medication regimen - Discharge Information Referrals: PCP,None [Primary Care Provider] - Forms: ED Department Discharge Additional Instructions: The following information is given to patients seen in the emergency department who are being discharged to home. This information is to outline your options for follow-up care. We provide all patients seen in our emergency department with a follow-up referral. The need for follow-up, as well as the timing and circumstances, are variable depending upon the specifics of your emergency department visit. If you don't have a primary care physician on staff, we will provide you with a referral. We always advise you to contact your personal physician following an emergency department visit to inform them of the circumstance of the visit and for follow-up with them and/or the need for any referrals to a consulting specialist. The emergency department will also refer you to a specialist when appropriate. This referral assures that you have the opportunity for follow-up care with a specialist. All of these measure are taken in an effort to provide you with optimal care, which includes your follow-up. Under all circumstances we always encourage you to contact your private physician who remains a resource for coordinating your care. When calling for follow-up care, please make the office aware that this follow-up is from your recent emergency room visit. If for any reason you are refused follow-up, please contact the [facility] emergency department at and asked to speak to the emergency department charge nurse. - My Orders Last 24 Hours: My Active Orders 09/27/18 13:25 LEVETIRACETAM, S [REF] Stat 09/27/18 13:29 EKG Documentation Completion [RC] STAT 09/27/18 17:00 Sodium Chloride 0.9% [Normal Saline] 1,000 ml IV STAT - Assessment/Plan Last 24 Hours: My Active Orders 09/27/18 13:25 LEVETIRACETAM, S [REF] Stat 09/27/18 13:29 EKG Documentation Completion [RC] STAT 09/27/18 17:00 Sodium Chloride 0.9% [Normal Saline] 1,000 ml IV STAT
[2018-09-27] MEDS ORDERED: levETIRAcetam Soln 500 MG/5 ML Cup PO ONE ×2 (13:54→14:30)
[2018-09-27 14:08] LABS: CHLORIDE,CL 105 mmol/L (98-107); SODIUM,NA 140 mmol/L (136-148)
--- NOTE | 2018-09-27 14:42 | CR ---
HISTORY: Chest pain. Seizures. TECHNIQUE: Portable frontal view the chest. COMPARISON: Chest x-ray 08/22/2018. FINDINGS: Sternal wires. No airspace consolidation. No pleural effusion or pneumothorax. Pulmonary vasculature is within normal limits. Cardiomediastinal silhouette is enlarged, unchanged. IMPRESSION: No acute abnormality. Unchanged enlarged cardiomediastinal silhouette. Dictated by Alfonzo Burgos MD @ Sep 27 2018 2:40PM Signed by Dr. Alfonzo Burgos @ Sep 27 2018 2:41PM
[2018-09-27] MEDS ORDERED: Enalaprilat 1.25 MG/ML SDV IVPUSH ONE (15:34)
[2018-09-27] MEDS ORDERED: cloNIDine 0.1 MG Tab PO ONE (16:54)
[2018-09-27] MEDS ORDERED: diphenhydrAMINE 50 MG/ML SDV IVPUSH ONE (16:54)
[2018-09-27] MEDS ORDERED: Sodium Chloride 0.9% 1,000 ML IV SCH (17:00)
--- NOTE | 2018-09-27 17:16 | CT ---
INDICATION: Seizure. COMPARISON: None available. TECHNIQUE: CT examination of the head was performed with 3 mm thick axial sections without intravenous contrast. Images were obtained from the vertex of the skull through the skull base, and I examined the images with the brain and bone windows. Please note that all CT scans at this facility use dose modulation, iterative reconstruction, and/or weight-based dosing when appropriate to reduce radiation dose to as low as reasonably achievable. FINDINGS: : There is a tiny old lacunar infarct in the anterior body of the caudate on the left. The brain is normal in appearance for the patient`s age on today`s study, with no sign of mass lesion, mass effect, hemorrhage, or edema. The ventricles and sulci are normal in appearance for the patient`s age. Nothing is seen to correlate with the history of seizure. There is no sign of midline developmental abnormality, migrational abnormality, or abnormality of gyral formation or myelination. The medial temporal lobes are well formed with no sign of any abnormality. MRI has a higher sensitivity for structural abnormalities related to seizures. There is an old left medial orbital blowout fracture. The orbital structures are otherwise normal in appearance. The visualized portions of the paranasal sinuses and mastoids are clear. The osseous structures are normal in their appearance with no sign of abnormality in the skull base or calvarium. IMPRESSION: Nothing seen in the brain to correlate with history of seizures. 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 Otherwise normal CT appearance of the brain. Please note that all CT scans at this facility use dose modulation, iterative reconstruction, and/or weight-based dosing when appropriate to reduce radiation dose to as low as reasonably achievable. Dictated by Jose Bishop MD @ Sep 27 2018 5:10PM Signed by Dr. Jose Bishop @ Sep 27 2018 5:14PM
== END 2018-09-27 17:55 | disposition home or self-care (01) ==
LOC: MW.ED 13:22
DX: G40.909 Epilepsy, unspecified, not intractable, without status epilepticus (principal); S01.552A Open bite of oral cavity, initial encounter; Z91.19 Patient's noncompliance with other medical treatment and regimen; I10 Essential (primary) hypertension; I48.91 Unspecified atrial fibrillation; K50.90 Crohn's disease, unspecified, without complications; Z88.2 Allergy status to sulfonamides; Z79.899 Other long term (current) drug therapy; X58.XXXA Exposure to other specified factors, initial encounter
CPT/HCPCS: 36415; 70450; 71045; 80053; 80177; 80305; 81001; 84484; 85025; 85610; 93005; 96361; 96365; 96375; 99285; A9270; G0480; J0696; J1200; J2060; J7040; 99284

== ENCOUNTER 2018-09-28 04:25 | Emergency (ER) | payer MEDICAID ==
--- NOTE | 2018-09-28 04:32 | EDM.PDOC ---
ED HPI GENERAL MEDICAL PROBLEM - General Stated Complaint: SEIZURE Time Seen by Provider: 09/28/18 05:19 - History of Present Illness INITIAL COMMENTS - FREE TEXT/NARRATIVE: HISTORY AND PHYSICAL: History of present illness: Patient 47-year-old black male with history of seizure disorder was seen recently for seizure he is prescribed Keppra be taken twice a day and has decided not on his own to take it once a day in an effort to wean himself off it and returns now with generalized seizure. There was no associated injuries with this other than patient having bit his tongue. Review of systems: As per history of present illness and below otherwise all systems reviewed and negative. Past medical history: As per history of present illness and as reviewed below otherwise noncontributory. Surgical history: As per history of present illness and as reviewed below otherwise noncontributory. Social history: No reported history of drug or alcohol abuse. Family history: As per history of present illness and as reviewed below otherwise noncontributory. Physical exam: HEENT: Atraumatic, normocephalic, pupils reactive, negative for conjunctival pallor or scleral icterus, mucous membranes moist, throat clear, neck supple, nontender, trachea midline. Patient has approximately 1/2 cm moderate depth laceration of his right tongue Lungs: Clear to auscultation, breath sounds equal bilaterally, chest nontender. Heart: S1S2, regular, negative for clicks, rubs, or JVD. Abdomen: Soft, nondistended, nontender. Negative for masses or hepatosplenomegaly. Negative for costovertebral tenderness. Pelvis: Stable nontender. Genitourinary: Deferred. Rectal: Deferred. Extremities: Atraumatic, negative for cords or calf pain. Neurovascular unremarkable. Neuro: Awake, alert, oriented. Cranial nerves II through XII unremarkable. Cerebellum unremarkable. Motor and sensory unremarkable throughout. Exam nonfocal. Diagnostics: CBC CMP Therapeutics: IV O2 monitor patient time was anesthetized 1% lidocaine and closed with 4-0 absorbable suture Impression: #1 Seizure with known seizure disorder #2 medical noncompliance #3 tongue laceration Definitive disposition and diagnosis as appropriate pending reevaluation and review of above. - Related Data Allergies Allergy/AdvReac Type Severity Reaction Status Date / Time Sulfa (Sulfonamide Allergy Rash Verified 09/28/18 04:34 Antibiotics) Home Meds: Home Meds Warfarin [Coumadin] 4 mg PO ASDIRECTED 01/28/18 [History] Doxycycline [Vibramycin] 100 mg PO DAILY #10 tab 04/08/18 [Rx] Enalapril Maleate [Vasotec] 40 mg PO DAILY 04/08/18 [History] Enalapril [Vasotec] 10 mg PO DAILY 04/08/18 [History] levETIRAcetam [Keppra] 500 mg PO BID 04/08/18 [History] Carvedilol 6.25 mg PO BID 09/27/18 [History] Lisinopril 10 mg PO DAILY 09/27/18 [History] atorvaSTATin Calcium [Atorvastatin Calcium] 40 mg PO DAILY 09/27/18 [History] Past Medical History HEENT History: Reports: None Cardiovascular History: Reports: Afib Other Cardiovascular History: Mitral valve replacement and open heart surgery in 1994 Respiratory History: Reports: Other (See Below) Other Respiratory History: pneumonia Other Gastrointestinal History: Crohns disease Genitourinary History: Reports: None Musculoskeletal History: Reports: None Neurological History: Reports: Seizure Psychiatric History: Reports: None Endocrine/Metabolic History: Reports: None Hematologic History: Reports: None Immunologic History: Reports: None Oncologic (Cancer) History: Reports: None Dermatologic History: Reports: None - Infectious Disease History Infectious Disease History: Reports: Chicken Pox, Rheumatic Fever - Past Surgical History Head Surgeries/Procedures: Reports: None Cardiovascular Surgical History: Reports: Valve Replacement Social & Family History - Family History Family Medical History: Noncontributory - Caffeine Use Caffeine Use: Reports: Coffee ED ROS GENERAL - Review of Systems Review Of Systems: ROS reveals no pertinent complaints other than HPI. ED EXAM, GENERAL - Physical Exam Exam: See Below (See dictation) Course - Vital Signs Last Recorded V/S: Last Vital Signs Temp Pulse 83 09/28/18 04:31 Resp 20 09/28/18 04:31 BP 155/94 H 09/28/18 04:31 Pulse Ox 86 L 09/28/18 04:31 - Orders/Labs/Meds Labs: Laboratory Tests 09/28/18 09/28/18 Range/Units 04:39 04:39 WBC 11.90 H (4.0-11.0) K/uL RBC 4.85 (4.50-5.90) M/uL Hgb 13.9 (13.0-17.0) g/dL Hct 41.4 (38.0-50.0) % MCV 85.4 (80.0-98.0) fL MCH 28.7 (27.0-32.0) pg MCHC 33.6 (31.0-37.0) g/dL RDW Std Deviation 48.6 (28.0-62.0) fl RDW Coeff of Sherwin 16 H (11.0-15.0) % Plt Count 178 (150-400) K/uL MPV 10.60 (7.40-12.00) fL Neut % (Auto) 80.8 H (48.0-80.0) % Lymph % (Auto) 7.5 L (16.0-40.0) % [place] % (Auto) 11.1 (0.0-15.0) % Eos % (Auto) 0.5 (0.0-7.0) % Baso % (Auto) 0.1 (0.0-1.5) % Neut # (Auto) 9.6 H (1.4-5.7) K/uL Lymph # (Auto) 0.9 (0.6-2.4) K/uL [place] # (Auto) 1.3 H (0.0-0.8) K/uL Eos # (Auto) 0.1 (0.0-0.7) K/uL Baso # (Auto) 0.0 (0.0-0.1) K/uL Nucleated RBC % 0.0 /100WBC Nucleated RBCs # 0 K/uL Sodium 138 (136-148) mmol/L Potassium 4.0 (3.5-5.1) mmol/L Chloride 103 (98-107) mmol/L Carbon Dioxide 22.8 (21.0-32.0) mmol/L BUN 14 (7.0-18.0) mg/dL Creatinine 1.1 (0.8-1.3) mg/dL Est Cr Clr Drug Dosing TNP Estimated GFR (MDRD) > 60.0 ml/min Glucose 148 H (74-106) mg/dL Calcium 8.5 (8.5-10.1) mg/dL Total Bilirubin 2.9 H (0.2-1.0) mg/dL AST 40 H (15-37) IU/L ALT 55 (14-63) IU/L Alkaline Phosphatase 74 (46-116) U/L Total Protein 7.1 (6.4-8.2) g/dL Albumin 3.5 (3.4-5.0) g/dL Globulin 3.6 (2.6-4.0) g/dL Albumin/Globulin Ratio 1.0 (0.9-1.6) Meds: Medications Discontinued Medications Generic Name Dose Route Start Last Admin Trade Name Zoe PRN Reason Stop Dose Admin Lidocaine HCl Confirm 09/28/18 04:56 09/28/18 05:08 Xylocaine-Mpf 1% Administered 09/28/18 04:57 Not Given Dose 2 mls @ as directed .ROUTE .STK-MED ONE Lidocaine HCl 2 ml 09/28/18 05:07 09/28/18 05:08 Xylocaine-Mpf 1% INJECT 09/28/18 05:08 2 ml ONETIME ONE Administration Departure - Departure Time of Disposition: 05:18 Disposition: Home, Self-Care 01 Condition: Good Clinical Impression: Seizure, Tongue laceration, Medical non-compliance - Discharge Information Additional Instructions: The following information is given to patients seen in the emergency department who are being discharged to home. This information is to outline your options for follow-up care. We provide all patients seen in our emergency department with a follow-up referral. The need for follow-up, as well as the timing and circumstances, are variable depending upon the specifics of your emergency department visit. If you don't have a primary care physician on staff, we will provide you with a referral. We always advise you to contact your personal physician following an emergency department visit to inform them of the circumstance of the visit and for follow-up with them and/or the need for any referrals to a consulting specialist. The emergency department will also refer you to a specialist when appropriate. This referral assures that you have the opportunity for followup care with a specialist. All of these measure are taken in an effort to provide you with optimal care, which includes your followup. Under all circumstances we always encourage you to contact your private physician who remains a resource for coordinating your care. When calling for followup care, please make the office aware that this follow-up is from your recent emergency room visit. If for any reason you are refused follow-up, please contact the [facility] emergency department at and asked to speak to the emergency department charge nurse. Medications as prescribed and follow primary medical doctor as needed as discussed and return as needed as discussed
[2018-09-28 05:04] LABS: CHLORIDE,CL 103 mmol/L (98-107); SODIUM,NA 138 mmol/L (136-148)
[2018-09-28] MEDS: Lidocaine 1% 2 ML ONE ×2 (05:06→05:08)
[2018-09-28] MEDS ORDERED: Lidocaine 1% PF 2 ML SDV INJECT ONE (05:07)
[2018-09-28] MEDS ORDERED: levETIRAcetam 500 MG Tab PO STA (05:19)
[2018-09-28] MEDS ORDERED: levETIRAcetam 500 MG Tab ONE (05:21)
[2018-09-28] MEDS ORDERED: Acetaminophen 500 MG Tab PO ONE (06:13)
[2018-09-28] MEDS ORDERED: Acetaminophen 500 MG Tab ONE (06:16)
== END 2018-09-28 06:26 | disposition home or self-care (01) ==
LOC: MW.ED 04:25
DX: S01.512A Laceration without foreign body of oral cavity, initial encounter (principal); G40.909 Epilepsy, unspecified, not intractable, without status epilepticus; Z91.19 Patient's noncompliance with other medical treatment and regimen; I48.91 Unspecified atrial fibrillation; Z88.2 Allergy status to sulfonamides; Z79.01 Long term (current) use of anticoagulants; Z79.899 Other long term (current) drug therapy; X58.XXXA Exposure to other specified factors, initial encounter
CPT/HCPCS: 36415; 41251; 80053; 85025; 99284; A9270; J2001

== ENCOUNTER 2018-10-13 15:32 | Emergency (ER) | payer MEDICAID, OTHER ==
--- NOTE | 2018-10-13 16:20 | EDM.PDOC ---
ED HPI GENERAL MEDICAL PROBLEM - General Chief Complaint: Upper Extremity Injury/Pain Stated Complaint: FINGER INJURY Time Seen by Provider: 10/13/18 15:54 Source of Information: Reports: Patient History Limitations: Reports: No Limitations - History of Present Illness INITIAL COMMENTS - FREE TEXT/NARRATIVE: HISTORY AND PHYSICAL: History of present illness: Patient is a 48-year-old male who presents to the emergency room with complaints of a crush injury to the left fifth distal digit. He states that a pipe had dropped on the fingertip resulting in a superficial laceration at the base of the nail going towards the pad of the finger. He does take Coumadin daily which he self monitors and adjust at home. Denies hitting his head or having any loss of consciousness. Patient denies any fever, chills, headache, change in vision, syncope or near syncope. Denies any chest pain, back pain, shortness of breath or cough. Denies any GI or symptoms. Patient has been eating and drinking appropriately. Review of systems: As per history of present illness and below otherwise all systems reviewed and negative. Past medical history: As per history of present illness and as reviewed below otherwise noncontributory. Surgical history: As per history of present illness and as reviewed below otherwise noncontributory. Social history: See social history for further information Family history: As per history of present illness and as reviewed below otherwise noncontributory. Physical exam: General: Well-developed and well nourished 48-year-old male. Alert and oriented. Nontoxic appearing and in no acute distress. HEENT: Atraumatic, normocephalic, pupils equal and reactive bilaterally, negative for conjunctival pallor or scleral icterus, mucous membranes moist, trachea midline. No drooling or trismus noted. No meningeal signs. No hot potato voice noted. Lungs: Clear to auscultation, breath sounds equal bilaterally, chest nontender. Heart: S1S2, regular rate and rhythm without overt murmur Abdomen: Soft, nondistended, nontender. Skin: Superficial laceration at the base of the nailbed that extends approximately 0.5 cm into the pad of the finger. This is non-circumferential. Otherwise skin is intact, warm, dry. No lesions or rashes noted. Extremities: Pain with palpation of the distal 5th left finger tip, otherwise moves all extremities per self without difficulty or deficits. Neurovascular unremarkable. Neuro: Awake, alert, oriented. Cranial nerves II through XII unremarkable. Cerebellum unremarkable. Motor and sensory unremarkable throughout. Exam nonfocal. Notes: The abrasion/superficial laceration is unable to be repaired with suture. Wound care performed. Nonstick dressing applied. X-ray shows no acute findings. Supportive care measures were reviewed and discussed. Voices understanding and is agreeable to plan of care. Denies any further questions or concerns at this time. Diagnostics: X-ray Therapeutics: Wound care, bacitracin nonstick dressing Prescription: None Impression: Crush Injury Laceration Plan: 1. Rest, ice, elevate the affected extremity. Please wear the splint as directed. 2. Tylenol and/or Ibuprofen as needed for pain management. 3. Follow up with the Orthopedic provider as we discussed. Return to the ED as needed and as discussed. Definitive disposition and diagnosis as appropriate pending reevaluation and review of above. Left Finger-Little Pain Score (Numeric/FACES): 10 - Related Data Allergies Allergy/AdvReac Type Severity Reaction Status Date / Time Sulfa (Sulfonamide Allergy Rash Verified 10/13/18 15:47 Antibiotics) Home Meds: Home Meds Warfarin [Coumadin] 4 mg PO ASDIRECTED 01/28/18 [History] Doxycycline [Vibramycin] 100 mg PO DAILY #10 tab 04/08/18 [Rx] Enalapril Maleate [Vasotec] 40 mg PO DAILY 04/08/18 [History] Enalapril [Vasotec] 10 mg PO DAILY 04/08/18 [History] levETIRAcetam [Keppra] 500 mg PO BID 04/08/18 [History] Carvedilol 6.25 mg PO BID 09/27/18 [History] Lisinopril 10 mg PO DAILY 09/27/18 [History] atorvaSTATin Calcium [Atorvastatin Calcium] 40 mg PO DAILY 09/27/18 [History] Past Medical History HEENT History: Reports: None Cardiovascular History: Reports: Afib Other Cardiovascular History: Mitral valve replacement and open heart surgery in 1994 Respiratory History: Reports: Other (See Below) Other Respiratory History: pneumonia Other Gastrointestinal History: Crohns disease Genitourinary History: Reports: None Musculoskeletal History: Reports: None Neurological History: Reports: Seizure Psychiatric History: Reports: None Endocrine/Metabolic History: Reports: None Hematologic History: Reports: None Immunologic History: Reports: None Oncologic (Cancer) History: Reports: None Dermatologic History: Reports: None - Infectious Disease History Infectious Disease History: Reports: Chicken Pox - Past Surgical History Head Surgeries/Procedures: Reports: None Cardiovascular Surgical History: Reports: Valve Replacement Social & Family History - Family History Family Medical History: Noncontributory - Tobacco Use Smoking Status *Q: Never Smoker - Caffeine Use Caffeine Use: Reports: None - Recreational Drug Use Recreational Drug Use: No Review of Systems - Review of Systems Review Of Systems: ROS reveals no pertinent complaints other than HPI. ED EXAM, GENERAL - Physical Exam Exam: See Below (See dictation) Course - Vital Signs Last Recorded V/S: Last Vital Signs Temp Pulse 76 10/13/18 15:48 Resp 17 10/13/18 15:48 BP 159/96 H 10/13/18 15:48 Pulse Ox 97 10/13/18 15:48 - Orders/Labs/Meds Orders: Active Orders 24 hr Category Date Time Status Communication Order [RC] STAT Care 10/13/18 16:25 Active DME for Discharge [COMM] Stat Oth 10/13/18 16:32 Ordered Departure - Departure Time of Disposition: 17:08 Disposition: Home, Self-Care 01 Clinical Impression: Crush injury, Laceration - Discharge Information Instructions: Crush Injury of the Hand, [id number] Referrals: PCP,Unknown [Primary Care Provider] - Forms: ED Department Discharge Additional Instructions: The following information is given to patients seen in the emergency department who are being discharged to home. This information is to outline your options for follow-up care. We provide all patients seen in our emergency department with a follow-up referral. The need for follow-up, as well as the timing and circumstances, are variable depending upon the specifics of your emergency department visit. If you don't have a primary care physician on staff, we will provide you with a referral. We always advise you to contact your personal physician following an emergency department visit to inform them of the circumstance of the visit and for follow-up with them and/or the need for any referrals to a consulting specialist. The emergency department will also refer you to a specialist when appropriate. This referral assures that you have the opportunity for follow-up care with a specialist. All of these measure are taken in an effort to provide you with optimal care, which includes your follow-up. Under all circumstances we always encourage you to contact your private physician who remains a resource for coordinating your care. When calling for follow-up care, please make the office aware that this follow-up is from your recent emergency room visit. If for any reason you are refused follow-up, please contact the [facility] Emergency Department at and asked to speak to the emergency department charge nurse. [facility] [address] [place] [id number] [facility] [address] [place] [id number] 1. Rest, ice, elevate the affected extremity. Please wear the splint as directed. 2. Tylenol and/or Ibuprofen as needed for pain management. 3. Follow up with the Orthopedic provider as we discussed. Return to the ED as needed and as discussed. - My Orders Last 24 Hours: My Active Orders 10/13/18 16:25 Communication Order [RC] STAT 10/13/18 16:32 DME for Discharge [COMM] Stat - Assessment/Plan Last 24 Hours: My Active Orders 10/13/18 16:25 Communication Order [RC] STAT 10/13/18 16:32 DME for Discharge [COMM] Stat
--- NOTE | 2018-10-13 17:01 | CR ---
Indication: Crush injury. Technique: Three views of the left 5th finger were obtained. Comparison: None Findings: No acute fracture or subluxation is identified. The joint spaces are well maintained. Impression: No acute fracture. Dictated by Erin Cardenas MD @ Oct 13 2018 4:59PM Signed by Dr. Erin Cardenas @ Oct 13 2018 5:00PM
== END 2018-10-13 17:28 | disposition home or self-care (01) ==
LOC: MW.ED 15:32
DX: S67.197A Crushing injury of left little finger, initial encounter (principal); S61.217A Laceration without foreign body of left little finger without damage to nail, initial encounter; K50.90 Crohn's disease, unspecified, without complications; I48.91 Unspecified atrial fibrillation; Z88.2 Allergy status to sulfonamides; Z79.899 Other long term (current) drug therapy; W20.8XXA Other cause of strike by thrown, projected or falling object, initial encounter
CPT/HCPCS: 73140-26-F4; 73140-F4; 99283; 99283-25